=== PATIENT | female | born 1950 | race African-American/Black ===

== ENCOUNTER 2017-02-25 19:53 | Emergency (ER) | payer OTHER ==
[~2017-02-25] VITALS: Ht 167.6 cm; Wt 63.5 kg
[2017-02-25] MEDS ORDERED: NORCO 5-325 TA1 EACH PO (20:33)
[2017-02-25 21:18] VITALS: BP 170/103
== END 2017-02-25 21:20 | disposition home or self-care (01) ==
LOC: ER 19:53
DX: S82.492A Other fracture of shaft of left fibula, initial encounter for closed fracture (principal); Z98.890 Other specified postprocedural states; W11.XXXA Fall on and from ladder, initial encounter; Y93.89 Activity, other specified; Y92.89 Other specified places as the place of occurrence of the external cause; Y99.8 Other external cause status